=== PATIENT | male | born 1955 | race Hispanic/Latino ===

== ENCOUNTER 2017-05-01 08:45 | Observation (INO) | payer SELFPAY ==
[2017-05-01] MEDS ORDERED: Morphine 2 mg/ml ISec IVP STA (09:51)
[2017-05-01] MEDS ORDERED: Sodium Chloride 0.9% 1,000 ML IV STA (09:51)
[2017-05-01 10:21] LABS: BASO # 0.04 K/mm3 (0.0-2.0); BASO % 0.5 % (0.0-3.0); EOS # 0.1 (0.0-0.7); EOS % 1.2 % (1.5-5.0); GRAN # 4.99 (1.4-6.5); GRAN % 60.8 % (50.0-68.0); HEMOGLOBIN 16.7 g/dL (14.0-18.0); LYMPH # 2.4 (1.2-3.4); LYMPH % 29.7 % (22.0-35.0); MEAN CORPUSCULAR HEMOGLOBIN 31.6 pg (25.0-35.0); MEAN CORPUSCULAR HGB CONC 35.5 g/dl (31.0-37.0); MEAN PLATELET VOLUME 10.2 fl (7.0-11.0); MONO # 0.6 (0.1-0.6); MONO % 7.8 % (1.0-6.0); RBC 5.29 10^6/uL (3.5-6.1); RED CELL DISTRIBUTION WIDTH 12.3 % (11.5-14.5); URINE BILIRUBIN SMALL (NEGATIVE); URINE BLOOD LARGE (NEGATIVE); URINE GLUCOSE (UA) NEGATIVE (NEGATIVE); URINE LEUKOCYTE ESTERASE NEGATIVE Leu/uL (NEGATIVE); URINE NITRATE NEGATIVE (NEGATIVE); URINE PROTEIN 100 mg/dL (<30 mg/dL); URINE UROBILINOGEN 0.2 E.U./dL (<1 E.U./dL); WHITE BLOOD COUNT 8.2 10^3/ul (4.5-11.0)
[2017-05-01 10:23] LABS: URINE APPEARANCE TURBID (CLEAR); URINE COLOR YELLOW (YELLOW)
[2017-05-01 10:26] LABS: URINE BACTERIA TRACE (NEG); URINE HYALINE CAST 0 - 2 /hpf; URINE RBC TNTC /hpf (0-2)
--- NOTE | 2017-05-01 10:36 | RAD ---
HISTORY: chest pain/abdominal pain COMPARISON: No prior. FINDINGS: LUNGS: The lungs are hyperinflated and there is peribronchial thickening with chronic changes in both lungs. No lobar pneumonia. PLEURA: No significant pleural effusion identified, no pneumothorax apparent. CARDIOVASCULAR: Normal. OSSEOUS STRUCTURES: No significant abnormalities. VISUALIZED UPPER ABDOMEN: Normal. OTHER FINDINGS: None. IMPRESSION: No active pulmonary disease. COPD.
[2017-05-01 10:50] LABS: ALB/GLOB RATIO 1.3 (1.1-1.8); ALBUMIN 4.5 g/dL (3.0-4.8); ALT/SGPT 26 U/L (7-56); AST/SGOT 29 U/L (17-59); BLOOD UREA NITROGEN 13 mg/dL (7-21); GFR AFRICAN-AMERICAN > 60; GFR NON-AFRICAN AMERICAN 57; LIPASE 81 U/L (23-300)
[2017-05-01 11:00] LABS: TROPONIN I < 0.01 ng/mL
--- NOTE | 2017-05-01 12:07 | CT ---
PROCEDURE: CT Angiography Chest, Abdomen and Pelvis with and without intravenous contrast HISTORY: chest and abdominal pain COMPARISON: None. TECHNIQUE: Contiguous axial images of the chest, abdomen and pelvis were obtained in the phase of aortic enhancement. A noncontrast enhanced CT of the chest was also obtained to evaluate for possible intramural thrombus. Coronal and sagittal reformats were generated. IV dose administered: 150 cc of Omni 350 Radiation dose: Total exam DLP = 1059 mGy-cm. This CT exam was performed using one or more of the following dose reduction techniques: Automated exposure control, adjustment of the mA and/or kV according to patient size, and/or use of iterative reconstruction technique. FINDINGS: CT ANGIOGRAPHY OF THE CHEST WITH & WITHOUT CONTRAST: AORTA (CHEST AND ABDOMEN): The thoracic and abdominal aorta are unremarkable, without aneurysm, dissection or rupture. No intramural thrombus identified in the thoracic aorta on the non-contrast ct of the chest. No evidence of pulmonary embolus The celiac axis, superior mesenteric artery, inferior mesenteric artery and the renal arteries are widely patent. The pelvic arteries are unremarkable. LUNGS: Clear. No nodule, mass or consolidation. MEDIASTINUM: Unremarkable. Normal caliber aorta and pulmonary arterial trunk. No aortic dissection. Normal size heart. LYMPH NODES: Unremarkable. PLEURA: Unremarkable. No pneumothorax. No pleural fluid. BONES: Unremarkable. OTHER FINDINGS: None. CT ANGIOGRAPHY OF THE ABDOMEN AND PELVIS WITH CONTRAST: LIVER: Unremarkable. No gross lesion or ductal dilatation. GALLBLADDER AND BILE DUCTS: Unremarkable. PANCREAS: Unremarkable. No gross lesion or ductal dilatation. SPLEEN: Unremarkable. ADRENALS: Unremarkable. No mass. KIDNEYS AND URETERS: Unremarkable. No hydronephrosis. No solid mass. VASCULATURE: Unremarkable. No aortic aneurysm. STOMACH AND BOWEL: Unremarkable. No obstruction. No gross mural thickening. APPENDIX: Normal appendix. PERITONEUM: Unremarkable. No free fluid. No free air. LYMPH NODES: Unremarkable. No enlarged lymph nodes. BLADDER: Unremarkable. REPRODUCTIVE: Unremarkable. BONES: No acute fracture. OTHER FINDINGS: Coronary artery calcifications IMPRESSION: No acute findings
--- NOTE | 2017-05-01 12:54 | ED PDOC ---
Arrival/HPI - General Chief Complaint: Male Genitourinary Time Seen by Provider: 05/01/17 09:17 Historian: Patient - History of Present Illness Narrative History of Present Illness (Text): 05/01/17 12:51 A 61 year old male presents to the emergency department complaining of abdominal pain for the past few weeks. Patient reports he was diagnosed with 5 kidney stones and recently passed 3 stones this past week. He notes severe epigastric abdominal pain with a heart burn sensation radiating to his chest and palpitations. Patient states his symptoms worsened over the past 3 days and "didn't feel right" so he came in for further evaluation. Patient notes constipation for a few days but denies any fever, chills, nausea, vomiting, urinary symptoms, hematochezia, shortness of breath, cough, headache, dizziness or any other complaint. Patient is not compliant with his blood pressure medication. Patient was told he needed cardiac stent placement but never had the procedure done. Time/Duration: Other (weeks) Symptom Course: Worsening (over the past 3 days) Quality: Aching, Burning, Other Severity Level: Mild Context: Home Past Medical History - Provider Review Nursing Documentation Reviewed: Yes - Travel History Have you recently traveled outside [place] w/in the past 3 mons?: No - Infectious Disease Hx of Infectious Diseases: None - Cardiac Hx Cardiac Disorders: Yes - Pulmonary Hx Respiratory Disorders: No - Neurological Hx Neurological Disorder: No - HEENT Hx HEENT Disorder: No - Renal Hx Renal Disorder: Yes Hx Kidney Stones: Yes - Endocrine/Metabolic Hx Endocrine Disorders: No - Hematological/Oncological Hx Blood Disorders: Yes Other/Comment: PE in R lung - Integumentary Hx Dermatological Disorder: No - Musculoskeletal/Rheumatological Hx Musculoskeletal Disorders: Yes Other/Comment: L knee sx with PE in R lung s/p sx. - Gastrointestinal Hx Gastrointestinal Disorders: No - Genitourinary/Gynecological Hx Genitourinary Disorders: No - Psychiatric Hx Psychophysiologic Disorder: No Hx Substance Use: No - Surgical History Other/Comment: L knee sx - Anesthesia Hx Anesthesia: Yes Hx Anesthesia Reactions: No Family/Social History - Physician Review Nursing Documentation Reviewed: Yes Family/Social History: No Known Family HX Smoking Status: Never Smoked Hx Alcohol Use: No Hx Substance Use: No Allergies/Home Meds Allergies/Adverse Reactions: Allergies morphine Adverse Reaction (Verified 05/01/17 09:59) VOMITING Home Medications: Home Meds Medication Instructions Recorded Confirmed Aspirin [Adult Aspirin Regimen] 1 tab PO DAILY 05/01/17 05/01/17 Review of Systems - Physician Review All systems were reviewed & negative as marked: Yes - Review of Systems Constitutional: absent: Fevers, Night Sweats Respiratory: absent: SOB, Cough Cardiovascular: Chest Pain, Palpitations Gastrointestinal: Abdominal Pain (epigastric pain with heart burn sensation radiating to chest), Constipation. absent: Nausea, Vomiting, Hematochezia Genitourinary Male: absent: Dysuria, Frequency, Hematuria Musculoskeletal: Back Pain. absent: Arthralgias, Neck Pain Skin: absent: Pruritis Neurological: absent: Headache, Dizziness Psychiatric: absent: Depression, Suicidal Ideation Physical Exam Vital Signs Reviewed: Yes Vital Signs Temp Pulse Resp BP Pulse Ox 05/01/17 19:02 92 H 136/96 H 05/01/17 17:05 89 17 146/105 H 100 05/01/17 16:35 98 H 170/110 H 05/01/17 16:33 98 H 17 170/110 H 100 05/01/17 15:57 119 H 18 190/114 H 100 05/01/17 15:16 100 H 186/111 H 05/01/17 14:22 99 H 19 180/100 H 100 05/01/17 11:31 100 H 19 189/100 H 100 05/01/17 09:20 98.6 F 119 H 18 144/120 H 99 Temperature: Afebrile Blood Pressure: Hypertensive Pulse: Tachycardic Respiratory Rate: Normal Appearance: Positive for: Well-Appearing, Non-Toxic, Comfortable Pain Distress: None Mental Status: Positive for: Alert and Oriented X 3 - Systems Exam Head: Present: Atraumatic, Normocephalic Extroacular Muscles: Present: EOMI Conjunctiva: Present: Normal Mouth: Present: Moist Mucous Membranes Neck: Present: Normal Range of Motion Respiratory/Chest: Present: Clear to Auscultation, Good Air Exchange. No: Respiratory Distress, Accessory Muscle Use, Wheezes, Decreased Breath Sounds, Retracting, Rhonchi, Tachypneic Cardiovascular: Present: Normal S1, S2, Tachycardic. No: Murmurs Abdomen: Present: Tenderness (epigastric, RUQ, and LUQ tenderness to palpation) , Normal Bowel Sounds. No: Distention, Peritoneal Signs, Rebound, Guarding Back: Present: Normal Inspection. No: CVA Tenderness, Midline Tenderness, Paraspinal Tenderness Upper Extremity: Present: Normal Inspection, Normal ROM, NORMAL PULSES. No: Cyanosis, Edema Lower Extremity: Present: Normal Inspection, NORMAL PULSES (DP pulses intact), Normal ROM. No: Edema, CALF TENDERNESS Neurological: Present: GCS=15, Speech Normal Skin: Present: Warm, Dry, Normal Color. No: Rashes Psychiatric: Present: Alert, Oriented x 3 Medical Decision Making ED Course and Treatment: 05/01/17 12:51 Impression: A 61 year old male with htn, tachycardia. c/o epigastric abdominal pain with a heart burn sensation radiating to chest with palpitations. History of multiple kidney stones, recently passed 3. Plan: -- CT angiography disection -- Chest xray: wnl -- EKG: Sinus tachycardia at [address] elevations LVH - reviewed by dr. baker -- Labs:k; 3.4 glucose; 113 -- Urinalysis: + blood, no leukocytes -- Protonix and IV fluids -- trop; 0.01 -- Reassess and disposition Progress Notes: Report Date : 05/01/2017 10:34:38 Procedure: Chest xray Dictator : Eleanor Reeves MD IMPRESSION: No active pulmonary disease. COPD. Report Date : 05/01/2017 12:05:52 PROCEDURE: CT Angiography Chest, Abdomen and Pelvis with and without intravenous contrast Dictator : Giorgio Lynch MD IMPRESSION: No acute findings pt remains tachycardic and hypertensive. pt seen and evaluated by dr. baker; ativan and clonidine ordered. pt with negative ct angio, negative cxr; pt with continued htn and tachycardia with epigastric pain radiating to chest with palpitations. pt with hx of cardiac disease. will admit observational status to tele for further evaluation , cardiac consult. case discussed with dr. guardado; accepts observational status admission. impression; chest pain, abdominal pain, palpitations, hypertension admit observational status to tele. - Lab Interpretations Lab Results: 05/01/17 10:00 05/01/17 10:00 Lab Results 05/01/17 10:00: WBC 8.2, RBC 5.29, Hgb 16.7, Hct 47.1, MCV 89.0, MCH 31.6, MCHC 35.5, RDW 12.3, Plt Count 204, MPV 10.2, Gran % 60.8, Lymph % (Auto) 29.7, [place] % (Auto) 7.8 H, Eos % (Auto) 1.2 L, Baso % (Auto) 0.5, Gran # 4.99, Lymph # 2.4 , [place] # 0.6, Eos # 0.1, Baso # 0.04 05/01/17 10:00: Sodium 140, Potassium 3.4 L, Chloride 103, Carbon Dioxide 24, Anion Gap 16, BUN 13, Creatinine 1.3, Est GFR ( Amer) > 60, Est GFR (Non- Af Amer) 57, Random Glucose 113 H, Calcium 10.0, Total Bilirubin 1.0, AST 29, ALT 26, Alkaline Phosphatase 84, Lactate Dehydrogenase 367, Total Creatine Kinase 47, Troponin I < 0.01, Total Protein 8.0, Albumin 4.5, Globulin 3.5, Albumin/Globulin Ratio 1.3, Lipase 81 05/01/17 10:00: Urine Color Yellow, Urine Appearance Turbid, Urine pH 6.0, Ur Specific [place] >= 1.030, Urine Protein 100 H, Urine Glucose (UA) Negative, Urine Ketones Trace H, Urine Blood Large H, Urine Nitrate Negative, Urine Bilirubin Small H, Urine Urobilinogen 0.2, Ur Leukocyte Esterase Negative, Urine RBC Tntc, Urine WBC 2 - 5, Urine Bacteria Trace, Hyaline Casts 0 - 2, Urine Other Mucus I have reviewed the lab results: Yes - RAD Interpretation Radiology Orders: 05/01/17 09:51 CHEST PORTABLE [RAD] Stat 05/01/17 09:58 ANGIOGRAPHY DISECTION PROTOCOL [CT] Stat - Medication Orders Current Medication Orders: Acetaminophen (Tylenol 325mg Tab) 650 mg PO Q6H PRN PRN Reason: Pain, Mild (1-3) Ketorolac Tromethamine (Toradol) 15 mg IVP Q3H PRN PRN Reason: Pain, moderate (4-7) Stop: 05/02/17 23:59 Last Admin: 05/01/17 18:59 Dose: 15 mg MAR Pain Assessment Document 05/01/17 18:59 RK (Rec: 05/01/17 19:02 [facility] [id number]) Pain Reassessment Is this a pain reassessment? No Presence of Pain Presence of Pain Yes Pain Scale Used Pain Scale Used Numeric Location Left, Right or Bilateral Right Description Description Constant IVP Administration Document 05/01/17 18:59 [facility] (Rec: 05/01/17 19:02 [id number] Charges for Administration # of IVP Administrations 1 Labetalol HCl (Trandate) 10 mg IV Q4H PRN PRN Reason: Systolic Blood Pressure Lisinopril (Zestril) 10 mg PO DAILY [facility] Metoprolol Tartrate (Lopressor) 50 mg PO 0800,1800 [facility] Last Admin: 05/01/17 19:02 Dose: 50 mg MAR Pulse and Blood Pressure Document 05/01/17 19:02 [facility] (Rec: 05/01/17 19:02 [id number]) Pulse Pulse Rate (60-90 beats/min) 92 Blood Pressure Blood Pressure (100/60-150/90 mm Hg) 136/96 Ondansetron HCl (Zofran Inj) 4 mg IVP Q6H PRN PRN Reason: Nausea/Vomiting Pantoprazole Sodium (Protonix Inj) 40 mg IVP DAILY [facility] Discontinued Medications Aspirin (Aspirin) 325 mg PO STAT STA Stop: 05/01/17 15:38 Last Admin: 05/01/17 16:28 Dose: Aspirin (Aspirin Chewable) 243 mg PO STAT STA Stop: 05/01/17 16:25 Last Admin: 05/01/17 16:31 Dose: 243 mg Clonidine HCl (Catapres) 0.1 mg PO STAT STA Stop: 05/01/17 15:02 Last Admin: 05/01/17 15:16 Dose: 0.1 mg MAR Pulse and Blood Pressure Document 05/01/17 15:16 [facility] (Rec: 05/01/17 15:16 [id number]) Pulse Pulse Rate (60-90 beats/min) 100 Blood Pressure Blood Pressure (100/60-150/90 mm Hg) 186/111 Sodium Chloride (Sodium Chloride 0.9%) 1,000 mls @ 999 mls/hr IV .Q1H1M STA Stop: 05/01/17 10:51 Last Admin: 05/01/17 10:09 Dose: 999 mls/hr eMAR Start Stop Document 05/01/17 10:09 SE (Rec: 05/01/17 10:09 [id number]) Intravenous Solution Start Date 05/01/17 Start Time 10:09 Labetalol HCl (Trandate) 10 mg IV ONCE ONE Stop: 05/01/17 16:27 Last Admin: 05/01/17 16:35 Dose: 10 mg eMAR Start Stop Document 05/01/17 16:35 [facility] (Rec: 05/01/17 16:35 [email or web address] Intravenous Solution Start Date 05/01/17 Start Time 16:35 [facility] Pulse and Blood Pressure Document 05/01/17 16:35 SE (Rec: 05/01/17 16:35 [email or web address] Pulse Pulse Rate (60-90 beats/min) 98 Blood Pressure Blood Pressure (100/60-150/90 mm Hg) 170/110 Lisinopril (Zestril) 10 mg PO DAILY JEAN PAUL Lorazepam (Ativan) 1 mg IVP ONCE ONE PRN Reason: Protocol Stop: 05/01/17 12:57 Last Admin: 05/01/17 13:05 Dose: 1 mg Comments: wasted with Meri [employer] IVP Administration Document 05/01/17 13:05 SE (Rec: 05/01/17 13:05 [email or web address] Charges for Administration # of IVP Administrations 1 Pantoprazole Sodium (Protonix Inj) 40 mg IVP STAT STA Stop: 05/01/17 10:02 Last Admin: 05/01/17 10:09 Dose: 40 mg IVP Administration Document 05/01/17 10:09 SE (Rec: 05/01/17 10:09 [email or web address] Charges for Administration # of IVP Administrations 1 Potassium Chloride (K-Dur 20 Meq Er Tab) 40 meq PO STAT STA Stop: 05/01/17 19:51 - Scribe Statement The provider has reviewed the documentation as recorded by the Thi Sawyer Provider Scribe Attestation: All medical record entries made by the Scribe were at my direction and personally dictated by me. I have reviewed the chart and agree that the record accurately reflects my personal performance of the history, physical exam, medical decision making, and the department course for this patient. I have also personally directed, reviewed, and agree with the discharge instructions and disposition. Disposition/Present on Arrival - Present on Arrival Any Indicators Present on Arrival: No History of DVT/PE: No History of Uncontrolled Diabetes: No Urinary Catheter: No History of Decub. Ulcer: No History Surgical Site Infection Following: None - Disposition Have Diagnosis and Disposition been Completed?: Yes Diagnosis: Chest pain, Abdominal pain, Palpitations, Hypertension, Tachycardia Disposition: HOSPITALIZED Disposition Time: 16:45 Patient Plan: Observation, Telemetry Condition: FAIR
[2017-05-01] MEDS ORDERED: Labetalol 5 mg/ml Inj 20ML IV ONE (16:26)
[2017-05-01] MEDS ORDERED: Labetalol 5 mg/ml Inj 20ML IV PRN (16:52)
--- NOTE | 2017-05-01 17:24 | CP.PCM.HP ---
<Jose Meeks - Last Filed: 05/01/17 17:04> History of Present Illness - History of Present Illness History of Present Illness: CC: Right flank pain Pt is a 61 yo male with PMH of recurrent nephrolithiasis HTN, HLD, and PE (5 yrs ago was on anticoagulation for 6 months) presents to [facility] due to right flank pain. Pt states that he has recurrent kidney stones in the past. The most recent occasion was February 2017, where he was treated in [place]. Pt was found to have numerous stones, the largest being 11 mm, which he eventually passed. The stone was found to be of calcium origin. Pt states that right flank pain resolved for only about 2 weeks and has been intermittent for the last 2 months. He describes the pain as 7/10 and crampy in nature. Pt denies hematuria , dysuria, or radiation, but admits to some suprapubic pain. Pt admits to subjective fevers. Pt also complaining of palpitations and fast heart rate. Pt states he has a history of hypertension of which he used to be on medication for , but has stopped since. Pt also reports that he had cardiac catherization 7 years ago. Pt states that he was told he might need stents vs CABG, but did not receive either. He was not given any medications on discharge at that time. Of note patient also complained of epigastric pain that radiates to the sternum. Pt states pain is intermittent and generally only occurs when he eats late at night. Pt states that pain has been controlled in the past with PPI therapy. Pt denied chest pain, SOB, nausea, vomiting, diarrhea, chills, headache, or dizziness. PMH: recurrent nephrolithiasis HTN, HLD, and PE (5 yrs ago was on anticoagulation for 6 months) PSH: Left knee surgery All: Morphine, oxycodone FHx: Non-contributory SH: Denied tobacco, EtOH, and illicit drug use Present on Admission - Present on Admission Any Indicators Present on Admission: No Review of Systems - Review of Systems Review of Systems: 12 point ROS reviewed and is negative other than what is stated in HPI. Past Patient History - Infectious Disease Hx of Infectious Diseases: None - Past Social History Smoking Status: Never Smoked - CARDIAC Hx Cardiac Disorders: Yes - PULMONARY Hx Respiratory Disorders: No - NEUROLOGICAL Hx Neurological Disorder: No - HEENT Hx HEENT Problems: No - RENAL Hx Chronic Kidney Disease: Yes Hx Kidney Stones: Yes - ENDOCRINE/METABOLIC Hx Endocrine Disorders: No - HEMATOLOGICAL/ONCOLOGICAL Hx Blood Disorders: Yes Other/Comment: PE in R lung - INTEGUMENTARY Hx Dermatological Problems: No - MUSCULOSKELETAL/RHEUMATOLOGICAL Hx Musculoskeletal Disorders: Yes Other/Comment: L knee sx with PE in R lung s/p sx. - GASTROINTESTINAL Hx Gastrointestinal Disorders: No - GENITOURINARY/GYNECOLOGICAL Hx Genitourinary Disorders: No - PSYCHIATRIC Hx Psychophysiologic Disorder: No Hx Substance Use: No - SURGICAL HISTORY Other/Comment: L knee sx - ANESTHESIA Hx Anesthesia: Yes Hx Anesthesia Reactions: No Meds Allergies/Adverse Reactions: Allergies Allergy/AdvReac Type Severity Reaction Status Date / Time morphine AdvReac VOMITING Verified 05/01/17 09:59 Results - Vital Signs Recent Vital Signs: Last Vital Signs Temp 98.6 F 05/01/17 09:20 Pulse 98 H 05/01/17 16:35 Resp 17 05/01/17 16:33 BP 170/110 H 05/01/17 16:35 Pulse Ox 100 05/01/17 16:33 - Labs Result Diagrams: 05/01/17 10:00 05/01/17 10:00 Assessment & Plan - Assessment and Plan (Free Text) Assessment: 61 yo M with PMH of recurrent nephrolithiasis HTN, HLD, and PE (5 yrs ago was on anticoagulation for 6 months) presents with right flank pain, hypertension, and epigastric pain will be admitted for evaluation and treatment for uncontrolled hypertension, nephrolithiasis, and ACS rule out. Plan: 1. Uncontrolled hypertension - CT abd/pelv does not show evidence of aortic aneurysm/rupture - Cardio consulted - Echo ordered - Labetolol and Clonidine given in ED - Labetolol 10 mg IVP Q4H prn - Lisinopril 10 mg PO daily - Lopressor 50 mg PO BID - Consider Norvasc if BP still elevated on current regimen - Hold antihypertensives for HR < 60, SBP < 110 2. R/o ACS - Symptoms more likely due to GERD - Trop negative x1, will trend x2 - AM EKG - Protonix 3. Nephrolithiasis - CT abd/pelv with contrast does not show stones - KUB ordered - Toradol and tylenol for pain - Zofran for nausea GI/DVT PPx - Protonix - SCDs Pt seen and discussed in detail with Dr. Gtz. Rene Meeks, PGY1 <Wei Gtz - Last Filed: 05/02/17 13:32> Results - Vital Signs Recent Vital Signs: Last Vital Signs Temp 97.8 F 05/02/17 12:00 Pulse 88 05/02/17 12:00 Resp 18 05/02/17 12:00 BP 123/72 05/02/17 12:00 Pulse Ox 97 05/02/17 06:00 - Labs Result Diagrams: 05/02/17 06:00 05/02/17 06:00 Labs: Laboratory Results - last 24 hr 05/01/17 05/02/17 05/02/17 19:55 02:05 06:00 WBC 8.8 RBC 4.58 Hgb 14.0 D Hct 41.3 L MCV 90.2 MCH 30.6 MCHC 33.9 RDW 12.6 Plt Count 203 MPV 10.4 Sodium Potassium Chloride Carbon Dioxide Anion Gap BUN Creatinine Est GFR ( Amer) Est GFR (Non-Af Amer) Random Glucose Calcium Phosphorus Magnesium Total Bilirubin AST ALT Alkaline Phosphatase Troponin I 0.04 D 0.03 D Total Protein Albumin Globulin Albumin/Globulin Ratio Urine Color Urine Appearance Urine pH Ur Specific [place] Urine Protein Urine Glucose (UA) Urine Ketones Urine Blood Urine Nitrate Urine Bilirubin Urine Urobilinogen Ur Leukocyte Esterase Urine RBC Urine WBC Ur Epithelial Cells Urine Bacteria Urine Other 05/02/17 05/02/17 06:00 06:24 WBC RBC Hgb Hct MCV MCH MCHC RDW Plt Count MPV Sodium 140 Potassium 4.3 Chloride 106 Carbon Dioxide 23 Anion Gap 15 BUN 20 Creatinine 1.4 Est GFR ( Amer) > 60 Est GFR (Non-Af Amer) 52 Random Glucose 87 Calcium 9.6 Phosphorus 4.1 Magnesium 2.0 Total Bilirubin 0.9 AST 24 ALT 18 Alkaline Phosphatase 60 Troponin I Total Protein 6.9 Albumin 3.8 Globulin 3.0 Albumin/Globulin Ratio 1.3 Urine Color Yellow Urine Appearance Sl cloudy Urine pH 6.0 Ur Specific [place] 1.025 Urine Protein 30 H Urine Glucose (UA) Negative Urine Ketones Trace H Urine Blood Large H Urine Nitrate Negative Urine Bilirubin Small H Urine Urobilinogen 1.0 H Ur Leukocyte Esterase Negative Urine RBC 5 - 10 Urine WBC 1 - 3 Ur Epithelial Cells 0 - 2 Urine Bacteria Rare Urine Other Usperm Attending/Attestation - Attestation I have personally seen and examined this patient.: Yes I have fully participated in the care of the patient.: Yes I have reviewed all pertinent clinical information: Yes Notes (Text): 05/02/17 13:29 Patient was seen and examined with medical assistant float. Agreed with resident assessment and plan. 61 yo male with PMH of Nephrolithiasis, HTN, HLD, ,H/O PE ,5 yrs back , off anticoagulation and non compliance with medication is admitted with flack and epigastric pain, he is found to have hypertensive urgency in ER, CTA was negative for any aortic dissection.He has been started on oral Metoprolol/ Lisinopril and PRN Labetalol.We will monitor in telemetry, we will also get 2D echo. Management plan was discussed in detail with patient Education was provided.
--- NOTE | 2017-05-01 17:49 | CARD ---
APPROVED REPORT EKG Measurement Heart [id number] <Conclusion> Sinus tachycardia RSR' or QR pattern in V1 suggests right ventricular conduction delay Left anterior fascicular block Left ventricular hypertrophy with repolarization abnormality Abnormal ECG
[2017-05-01] MEDS ORDERED: Potassium Chloride 20 mEq ER Tab PO STA (19:50)
[2017-05-02 00:24] VITALS: BMI 22.9
[2017-05-02 01:24] VITALS: O2SAT 97
[2017-05-02] MEDS ORDERED: Pantoprazole 40 mg EC Tab PO SCH (06:00)
[2017-05-02 06:33] LABS: URINE BILIRUBIN SMALL (NEGATIVE); URINE BLOOD LARGE (NEGATIVE); URINE GLUCOSE (UA) NEGATIVE (NEGATIVE); URINE LEUKOCYTE ESTERASE NEGATIVE Leu/uL (NEGATIVE); URINE NITRATE NEGATIVE (NEGATIVE); URINE PROTEIN 30 mg/dL (<30 mg/dL)
[2017-05-02 06:37] LABS: MEAN CELL VOLUME 90.2 fl (80.0-105.0); MEAN CORPUSCULAR HEMOGLOBIN 30.6 pg (25.0-35.0); MEAN CORPUSCULAR HGB CONC 33.9 g/dl (31.0-37.0); MEAN PLATELET VOLUME 10.4 fl (7.0-11.0); RBC 4.58 10^6/uL (3.5-6.1); RED CELL DISTRIBUTION WIDTH 12.6 % (11.5-14.5); WHITE BLOOD COUNT 8.8 10^3/ul (4.5-11.0)
[2017-05-02 06:48] VITALS: TEMP 97.8
[2017-05-02 06:55] LABS: URINE APPEARANCE SL CLOUDY (CLEAR); URINE COLOR YELLOW (YELLOW)
[2017-05-02 07:03] LABS: URINE BACTERIA RARE (NEG); URINE EPITHELIAL CELLS 0 - 2 /hpf (0-5)
[2017-05-02 07:18] LABS: ALB/GLOB RATIO 1.3 (1.1-1.8); ALBUMIN 3.8 g/dL (3.0-4.8); ALT/SGPT 18 U/L (7-56); AST/SGOT 24 U/L (17-59); BLOOD UREA NITROGEN 20 mg/dL (7-21); CALCIUM 9.6 mg/dL (8.4-10.5); GFR AFRICAN-AMERICAN > 60; GFR NON-AFRICAN AMERICAN 52
--- NOTE | 2017-05-02 10:43 | RAD ---
HISTORY: nephrolithiasis COMPARISON: No prior. FINDINGS: BOWEL: Normal. No obstruction. No free air. BONES: Normal. OTHER FINDINGS: There are 2 separate stones in the right kidney measuring 7 and 14 mm in diameter. IMPRESSION: As above
--- NOTE | 2017-05-02 12:10 | CP.PCM.DIS ---
<Ray Tanner - Last Filed: 05/02/17 14:22> Provider - Provider Date of Admission: 05/01/17 15:37 Attending physician: Wei Gtz MD Time Spent in preparation of Discharge (in minutes): 45 Diagnosis - Discharge Diagnosis (1) Nephrolithiasis Status: Acute Priority: Medium (2) Hypertension Status: Chronic Priority: Medium (3) Hyperlipidemia Status: Chronic Priority: Medium (4) History of pulmonary embolism Status: Resolved Priority: Medium Hospital Course - Lab Results Lab Results: Most Recent Lab Values WBC 8.8 10^3/ul (4.5-11.0) 05/02/17 06:00 RBC 4.58 10^6/uL (3.5-6.1) 05/02/17 06:00 Hgb 14.0 g/dL (14.0-18.0) D 05/02/17 06:00 Hct 41.3 % (42.0-52.0) L 05/02/17 06:00 MCV 90.2 fl (80.0-105.0) 05/02/17 06:00 MCH 30.6 pg (25.0-35.0) 05/02/17 06:00 MCHC 33.9 g/dl (31.0-37.0) 05/02/17 06:00 RDW 12.6 % (11.5-14.5) 05/02/17 06:00 Plt Count 203 10^3/uL (120.0-450.0) 05/02/17 06:00 MPV 10.4 fl (7.0-11.0) 05/02/17 06:00 Gran % 60.8 % (50.0-68.0) 05/01/17 10:00 Lymph % (Auto) 29.7 % (22.0-35.0) 05/01/17 10:00 Bath % (Auto) 7.8 % (1.0-6.0) H 05/01/17 10:00 Eos % (Auto) 1.2 % (1.5-5.0) L 05/01/17 10:00 Baso % (Auto) 0.5 % (0.0-3.0) 05/01/17 10:00 Gran # 4.99 (1.4-6.5) 05/01/17 10:00 Lymph # 2.4 (1.2-3.4) 05/01/17 10:00 Bath # 0.6 (0.1-0.6) 05/01/17 10:00 Eos # 0.1 (0.0-0.7) 05/01/17 10:00 Baso # 0.04 K/mm3 (0.0-2.0) 05/01/17 10:00 Sodium 140 mmol/L (132-148) 05/02/17 06:00 Potassium 4.3 mmol/L (3.6-5.0) 05/02/17 06:00 Chloride 106 mmol/L (98-107) 05/02/17 06:00 Carbon Dioxide 23 mmol/L (21-33) 05/02/17 06:00 Anion Gap 15 (10-20) 05/02/17 06:00 BUN 20 mg/dL (7-21) 05/02/17 06:00 Creatinine 1.4 mg/dl (0.8-1.5) 05/02/17 06:00 Est GFR ( Amer) > 60 05/02/17 06:00 Est GFR (Non-Af Amer) 52 05/02/17 06:00 Random Glucose 87 mg/dL (70-110) 05/02/17 06:00 Calcium 9.6 mg/dL (8.4-10.5) 05/02/17 06:00 Phosphorus 4.1 mg/dL (2.5-4.5) 05/02/17 06:00 Magnesium 2.0 mg/dL (1.7-2.2) 05/02/17 06:00 Total Bilirubin 0.9 mg/dL (0.2-1.3) 05/02/17 06:00 AST 24 U/L (17-59) 05/02/17 06:00 ALT 18 U/L (7-56) 05/02/17 06:00 Alkaline Phosphatase 60 U/L (38-126) 05/02/17 06:00 Lactate Dehydrogenase 367 U/L (333-699) 05/01/17 10:00 Total Creatine Kinase 47 U/L (35-230) 05/01/17 10:00 Troponin I 0.03 ng/mL D 05/02/17 02:05 Total Protein 6.9 g/dL (5.8-8.3) 05/02/17 06:00 Albumin 3.8 g/dL (3.0-4.8) 05/02/17 06:00 Globulin 3.0 gm/dL 05/02/17 06:00 Albumin/Globulin Ratio 1.3 (1.1-1.8) 05/02/17 06:00 Lipase 81 U/L (23-300) 05/01/17 10:00 Urine Color Yellow (YELLOW) 05/02/17 06:24 Urine Appearance Sl cloudy (CLEAR) 05/02/17 06:24 Urine pH 6.0 (4.7-8.0) 05/02/17 06:24 Ur Specific Eastern 1.025 (1.005-1.035) 05/02/17 06:24 Urine Protein 30 mg/dL (<30 mg/dL) H 05/02/17 06:24 Urine Glucose (UA) Negative mg/dL (NEGATIVE) 05/02/17 06:24 Urine Ketones Trace mg/dL (NEGATIVE) H 05/02/17 06:24 Urine Blood Large (NEGATIVE) H 05/02/17 06:24 Urine Nitrate Negative (NEGATIVE) 05/02/17 06:24 Urine Bilirubin Small (NEGATIVE) H 05/02/17 06:24 Urine Urobilinogen 1.0 E.U./dL (<1 E.U./dL) H 05/02/17 06:24 Ur Leukocyte Esterase Negative Jin/uL (NEGATIVE) 05/02/17 06:24 Urine RBC 5 - 10 /hpf (0-2) 05/02/17 06:24 Urine WBC 1 - 3 /hpf (0-6) 05/02/17 06:24 Ur Epithelial Cells 0 - 2 /hpf (0-5) 05/02/17 06:24 Urine Bacteria Rare (NEG) 05/02/17 06:24 Hyaline Casts 0 - 2 /hpf 05/01/17 10:00 Urine Other Usperm 05/02/17 06:24 - Hospital Course Hospital Course: Patient is a 61 year old male with a past medial history of of recurrent nephrolithiasis hypertension, hyperlipidemia, and pulmonary embolism who was admitted for evaluation of with right flank pain and epigatric pain. With the use of physical examinations, lab work, and imaging the patient was diagnosed with and treated for uncontrolled hypertension, nephrolithiasis, and acute coronary syndrome was ruled out. During their hospital stay the patient was seen by cardiology and their recommendations were both appreciated and utilized in the care for this patient. During their hospital stay the patient underwent CT angiography, echocardiogram, and abdominal xray which were reviewed, appreciated, and utilized in the management of the patients clinical course. The CT angiogram showed coronary artery calcifcations but not acute findings. The abdominal xray showed there are 2 separate stones in the right kidney measuring 7 and 14 mm in diameter. Echocardiogram showed ejection fraction of 54 %. Patient was treated with antihypertensive medications, analgesics amongst other empiric/therapeutic medications. At this time the patient is medically stable for discharge. Patient understands and appreciates discharge plan. Patient instructed to follow up with primary care physicians and outpatient urologist within three to five days from discharge. Furthermore, the patient is instructed to take medications as prescribed and to return to emergency room for evaluation of intractable headache, fever, chills, dizziness, chest pain, shortness of breath, abdominal pain, nausea, vomiting, diarrhea, constipation, and urinary symptoms. This is a brief summary of the patients hospital course. Please see patient chart for full details. Discharge Exam - Additional Findings Additional findings: - Constitutional Appears: Non-toxic, No Acute Distress - Head Exam Head Exam: atraumatic, normocephalic - Eye Exam Eye Exam: Normal appearance, PERRL. absent: Scleral icterus - ENT Exam ENT Exam: Mucous Membranes Moist - Neck Exam Neck exam: Normal Inspection - Respiratory Exam Respiratory Exam: Normal Breathing Pattern - Cardiovascular Exam Cardiovascular Exam: +S1, +S2. absent: Gallop, JVD - GI/Abdominal Exam GI & Abdominal Exam: Normal Bowel Sounds, absent: Distended, Guarding, Pulsatile Mass, Rebound, Rigid - Extremities Exam Extremities exam: Negative for: calf tenderness - Neurological Exam Neurological exam: Patient is awake, alert, responds to verbal stimuli, answers questions appropriately, follows commands, and moves extremities past midline - Psychiatric Exam Psychiatric exam: Normal Affect, Normal Mood - Skin Skin Exam: warm and dry Discharge Plan - Discharge Medications Prescriptions: Lisinopril [Zestril] 10 mg PO DAILY 10 Days tab Metoprolol Tartrate [Lopressor] 50 mg PO 0800,1800 10 Days tab - Follow Up Plan Condition: GOOD Disposition: HOME/ ROUTINE Patient education suggested?: Yes Instructions: Chest Pain (DC), Heart Healthy Diet (DC), Acute Abdominal Pain ( DC), Atrial Tachycardia (DC) Additional Instructions: Patient Instructions: Take medications as prescribed. Start lisinopril and metoprolol tartrate. Follow up with primacy care physician and outpatient urologistwithin three to five days from discharge. Complete basic metabolic panel within 1 week from discharge and discuss findings with the primary care physician. Follow up with Dr. Duncan for outpatient stress test. Return to the emergency room for evaluation of intractable headache, fever, chills, dizziness, chest pain, shortness of breath, abdominal pain, nausea, vomiting, diarrhea, constipation, and urinary symptoms. Referrals: Wei Duncan MD [Staff Provider] - <Wei Gtz - Last Filed: 05/03/17 16:43> Provider - Provider Date of Admission: 05/01/17 15:37 Attending physician: Wei Gtz MD Hospital Course - Lab Results Lab Results: Most Recent Lab Values WBC 8.8 10^3/ul (4.5-11.0) 05/02/17 06:00 RBC 4.58 10^6/uL (3.5-6.1) 05/02/17 06:00 Hgb 14.0 g/dL (14.0-18.0) D 05/02/17 06:00 Hct 41.3 % (42.0-52.0) L 05/02/17 06:00 MCV 90.2 fl (80.0-105.0) 05/02/17 06:00 MCH 30.6 pg (25.0-35.0) 05/02/17 06:00 MCHC 33.9 g/dl (31.0-37.0) 05/02/17 06:00 RDW 12.6 % (11.5-14.5) 05/02/17 06:00 Plt Count 203 10^3/uL (120.0-450.0) 05/02/17 06:00 MPV 10.4 fl (7.0-11.0) 05/02/17 06:00 Gran % 60.8 % (50.0-68.0) 05/01/17 10:00 Lymph % (Auto) 29.7 % (22.0-35.0) 05/01/17 10:00 Bath % (Auto) 7.8 % (1.0-6.0) H 05/01/17 10:00 Eos % (Auto) 1.2 % (1.5-5.0) L 05/01/17 10:00 Baso % (Auto) 0.5 % (0.0-3.0) 05/01/17 10:00 Gran # 4.99 (1.4-6.5) 05/01/17 10:00 Lymph # 2.4 (1.2-3.4) 05/01/17 10:00 Bath # 0.6 (0.1-0.6) 05/01/17 10:00 Eos # 0.1 (0.0-0.7) 05/01/17 10:00 Baso # 0.04 K/mm3 (0.0-2.0) 05/01/17 10:00 Sodium 140 mmol/L (132-148) 05/02/17 06:00 Potassium 4.3 mmol/L (3.6-5.0) 05/02/17 06:00 Chloride 106 mmol/L (98-107) 05/02/17 06:00 Carbon Dioxide 23 mmol/L (21-33) 05/02/17 06:00 Anion Gap 15 (10-20) 05/02/17 06:00 BUN 20 mg/dL (7-21) 05/02/17 06:00 Creatinine 1.4 mg/dl (0.8-1.5) 05/02/17 06:00 Est GFR ( Amer) > 60 05/02/17 06:00 Est GFR (Non-Af Amer) 52 05/02/17 06:00 Random Glucose 87 mg/dL (70-110) 05/02/17 06:00 Calcium 9.6 mg/dL (8.4-10.5) 05/02/17 06:00 Phosphorus 4.1 mg/dL (2.5-4.5) 05/02/17 06:00 Magnesium 2.0 mg/dL (1.7-2.2) 05/02/17 06:00 Total Bilirubin 0.9 mg/dL (0.2-1.3) 05/02/17 06:00 AST 24 U/L (17-59) 05/02/17 06:00 ALT 18 U/L (7-56) 05/02/17 06:00 Alkaline Phosphatase 60 U/L (38-126) 05/02/17 06:00 Lactate Dehydrogenase 367 U/L (333-699) 05/01/17 10:00 Total Creatine Kinase 47 U/L (35-230) 05/01/17 10:00 Troponin I 0.03 ng/mL D 05/02/17 02:05 Total Protein 6.9 g/dL (5.8-8.3) 05/02/17 06:00 Albumin 3.8 g/dL (3.0-4.8) 05/02/17 06:00 Globulin 3.0 gm/dL 05/02/17 06:00 Albumin/Globulin Ratio 1.3 (1.1-1.8) 05/02/17 06:00 Lipase 81 U/L (23-300) 05/01/17 10:00 Urine Color Yellow (YELLOW) 05/02/17 06:24 Urine Appearance Sl cloudy (CLEAR) 05/02/17 06:24 Urine pH 6.0 (4.7-8.0) 05/02/17 06:24 Ur Specific Eastern 1.025 (1.005-1.035) 05/02/17 06:24 Urine Protein 30 mg/dL (<30 mg/dL) H 05/02/17 06:24 Urine Glucose (UA) Negative mg/dL (NEGATIVE) 05/02/17 06:24 Urine Ketones Trace mg/dL (NEGATIVE) H 05/02/17 06:24 Urine Blood Large (NEGATIVE) H 05/02/17 06:24 Urine Nitrate Negative (NEGATIVE) 05/02/17 06:24 Urine Bilirubin Small (NEGATIVE) H 05/02/17 06:24 Urine Urobilinogen 1.0 E.U./dL (<1 E.U./dL) H 05/02/17 06:24 Ur Leukocyte Esterase Negative Jin/uL (NEGATIVE) 05/02/17 06:24 Urine RBC 5 - 10 /hpf (0-2) 05/02/17 06:24 Urine WBC 1 - 3 /hpf (0-6) 05/02/17 06:24 Ur Epithelial Cells 0 - 2 /hpf (0-5) 05/02/17 06:24 Urine Bacteria Rare (NEG) 05/02/17 06:24 Hyaline Casts 0 - 2 /hpf 05/01/17 10:00 Urine Other Usperm 05/02/17 06:24 Attending/Attestation - Attestation I have personally seen and examined this patient.: Yes I have fully participated in the care of the patient.: Yes I have reviewed all pertinent clinical information, including history, physical exam and plan: Yes Notes (Text): 05/03/17 16:39 Patient was seen and examined with medical appliance maker. Agreed with resident assessment and plan. 61 yo male with PMH of Nephrolithiasis, HTN, HLD, ,H/O PE ,5 yrs back , off anticoagulation and non compliance with medication is admitted with flack and epigastric pain, he is found to have hypertensive urgency in ER, CTA was negative for any aortic dissection.Patient blood pressure has improved.The issue of compliance with medication was discussed in detail with .Echo showed normal systolic function.Patient was evaluated by cardiology and out patient stress test has recommended. Patient has Nephrolithiasis.Renal functions are stable.Patient CT was negative for any hydronephrosis.His pain is better.He will follow up with Urology a out patient. Management plan was discussed in detail with patient Education was provided.
[2017-05-02 12:20] VITALS: BP 123/72; PULSE 88; RESP 18
--- NOTE | 2017-05-02 13:53 | CON ---
DATE: 05/02/2017 CONSULT SERVICE: Cardiology. REASON FOR CONSULTATION: Cardiac evaluation, history of coronary artery disease, admitted with nephrolithiasis. HISTORY OF PRESENT ILLNESS: This is a 61-year-old male with past medical history significant for differential hypertension, hyperlipidemia, PE 5 years ago on anticoagulation who lives in [place], history of cardiac catheterization at [facility] 7 years ago and was told first that he needs a stent and later on it was changed to coronary artery bypass surgery, but according to the patient, chief of Cardiology who is well known to the patient suggested not to proceed for any intervention, medical treatment. Later on, the patient had stress test periodically and followed with them. Last stress test was 2-3 years ago. Admitted here with a stone and complained of some palpitation because of renal stone in the renal colic, but denies any chest pain. PAST MEDICAL HISTORY: Significant for recurrent renal colic, hypertension, hyperlipidemia, coronary artery disease as above, history of PE 5 years ago, was on anticoagulation for six months, off anticoagulation four and a half years ago, and history of left knee surgery. CURRENT MEDICATIONS: Only taken aspirin. ALLERGIES: MORPHINE. REVIEW OF SYSTEMS: As per HPI. PHYSICAL EXAMINATION: VITAL SIGNS: As follows; temperature afebrile, heart rate 76, and blood pressure 138/88. HEENT: PERRLA. Extraocular muscles intact. NECK: Supple. No carotid bruits or thyromegaly. CHEST: Clear to auscultation. HEART: S1 and S2 regular. ABDOMEN: Soft. EXTREMITIES: Clubbing and cyanosis negative. LABORATORY DATA: Blood workup as follows; WBC 8.8, hemoglobin 14, hematocrit 41.3, and platelet count 203. Chemistry shows sodium 140, potassium 4.3, chloride 106, carbon dioxide 23, anion gap 15, BUN 23, and creatinine 1.4. Troponin is 0.01 x3 is negative. IMPRESSION: A 61-year-old male with past medical history significant for recurrent stone, admitted with renal colic, complaining of palpitations, history of coronary artery disease 7 years ago, has a cardiac catheterization done at [facility], initially was told he needed stent, later on he was told he needs a bypass, but later on, chief of Cardiology according to the patient decided to do the medical treatment since the patient is fairly stable. Denies any chest pain. Denies dyspnea on exertion. Lives in [place]. Admitted with renal colic and palpitations, but denies any chest pain. History of pulmonary embolism 5 years ago, was on anticoagulation for 6 months. History of hypertension and hyperlipidemia, but only takes baby aspirin. RECOMMENDATIONS: We will start low-dose beta kyle. We will get echo to assess LV function. Suggested the patient to have a stress test, but the patient wanted to do at [facility]. He is going there next month. Suggested again to the patient and emphasis made to echo department to have a stress test because of history of coronary artery disease though it was decided to treat medically. Last stress test was more than 2 years ago, but the patient said he will follow at [facility]. He follows there. So we will discontinue telemetry, continue beta-kyle once the patient is stable. From medical point of view, the patient can be discharged home. We will discontinue telemetry. EKG shows normal sinus, no acute ST-T changes noted. Wei Duncan MD
--- NOTE | 2017-05-02 17:23 | CARD ---
APPROVED REPORT EXAM: Two-dimensional and M-mode echocardiogram with Doppler and color Doppler. INDICATION Hypertension/HCVD 2D DIMENSIONS Left Atrium (2D)3.5 (1.6-4.0cm)IVSd1.3 (0.7-1.1cm) LVDd4.4 (3.9-5.9cm)PWd1.2 (0.7-1.1cm) LVDs3.2 (2.5-4.0cm)FS (%) 27.8 % LVEF (%)54.1 (>50%) M-Mode DIMENSIONS Aortic Root3.40 (2.2-3.7cm)Aortic Cusp Exc.1.40 (1.5-2.0cm) Aortic Valve AoV Peak Xkmmoyiz937.0cm/Mynor Peak GR.4mmHg Mitral Valve MV E Ojjgsopc68.6cm/sMV A Zgdahstz99.3cm/sE/A ratio0.8 TDI E/Lateral E'0.0E/Medial E'0.0 Tricuspid Valve TR Peak [id number]/sRAP [id number] Peak Gr.20mmHg [id number] LEFT VENTRICLE The left ventricle is normal size. There is mild concentric left ventricular hypertrophy. The left ventricular function is normal. The left ventricular ejection fraction is within the normal range. There is normal LV segmental wall motion. Transmitral Doppler flow pattern is Grade I-abnormal relaxation pattern. RIGHT VENTRICLE The right ventricle is normal size. There is normal right ventricular wall thickness. The right ventricular systolic function is normal. ATRIA The left atrium size is normal. The right atrium size is normal. AORTIC VALVE The aortic valve is mildly thickened. No aortic regurgitation is present. There is no aortic valvular stenosis. MITRAL VALVE The mitral valve is mildly thickened. There is no mitral valve regurgitation noted. There is no mitral valve stenosis. TRICUSPID VALVE There is trace tricuspid regurgitation. GREAT VESSELS The aortic root is normal in size. The IVC is normal in size and collapses >50% with inspiration. PERICARDIAL EFFUSION There is a trace loculated anterior pericardial effusion. <Conclusion> The left ventricle is normal size. There is mild concentric left ventricular hypertrophy. The left ventricular function is normal. The left ventricular ejection fraction is within the normal range. There is normal LV segmental wall motion. Transmitral Doppler flow pattern is Grade I-abnormal relaxation pattern. The aortic valve is mildly thickened.
--- NOTE | 2017-05-02 20:05 | CARD ---
APPROVED REPORT EKG Measurement Heart [id number] <Conclusion> Normal sinus rhythm Left axis deviation Minimal voltage criteria for LVH, may be normal variant Abnormal ECG
== END 2017-05-02 17:24 | disposition home or self-care (01) ==
LOC: ED 08:45 → ERH 15:37 → 2RSO 19:45
PROVIDERS: ADMIT Internal Medicine; ATTEND Internal Medicine
DX: I10 Essential (primary) hypertension (principal); N20.0 Calculus of kidney; E78.5 Hyperlipidemia, unspecified; K21.9 Gastro-esophageal reflux disease without esophagitis; I25.10 Atherosclerotic heart disease of native coronary artery without angina pectoris; R07.9 Chest pain, unspecified; R00.2 Palpitations; Z79.82 Long term (current) use of aspirin; Z79.01 Long term (current) use of anticoagulants; Z86.711 Personal history of pulmonary embolism